=== PATIENT | male | born 1965 | race Hispanic/Latino ===

== ENCOUNTER 2016-09-14 08:48 | Inpatient (IN) | payer OTHER ==
[2016-09-14] MEDS ORDERED: Naloxone 0.4 mg/ml Inj (Adult) IVP STA (08:51)
[2016-09-14 08:52] VITALS: BMI 27.1
[2016-09-14] MEDS ORDERED: Sodium Chloride 0.9% 1,000 ML IV STA (09:00)
[2016-09-14 09:14] LABS: VENOUS BLOOD GAS BASE EXCESS 3.5 mmol/L (0.0-2.0); VENOUS BLOOD GAS PCO2 47 mmHg (40-60); VENOUS BLOOD GAS PO2 47 mm/Hg (30-55)
--- NOTE | 2016-09-14 09:39 | ED PDOC ---
HPI: Psych/Substance Abuse Time Seen by Provider: 09/14/16 08:51 Chief Complaint (Nursing): Substance Abuse Chief Complaint (Provider): "he took some pills" ED Caveat: Altered Mental Status, Intoxicated History Per: EMS, Other (friend) History/Exam Limitations: clinical condition Onset/Duration Of Symptoms: Unknown Suicide/Self Injury Attempted (Context): Ingestion Modifying Factor(s): Other Severity: Severe Associated Symptoms: Depression, Suicidal Thoughts Involuntary Hold By: Emergency Physician Additional History Per: Friend Additional Complaint(s): 49yo male per report from friend having marital difficulties texted a family member in [place] he took a bunch of pills this morning, friend went to apartment and broke door found patient semi-conscious on bed. Arrived ED obtunded with BLS, adequate respiratory effort, some pink ?vomitus on shirt. Police followed with medications collected at scene- offshore medications including migrane medicine, cold medicine and pain medicine per family. Medications are labeled in sami with hebrew translation including: Located at scene: 2 bottles of combination medicine Acetylsalicylic acid 250mg, paracetamol 250mg, caffeine 65mg; Box of blister packs of Dexamol Cold ( paracetamol 325mg, guafenisin 200mg, dextromethophamn 10mg, pseudoephedrine 25mg ; and Optaglin (Dipyrone 500mg). Bottles are empty, scatted blister packs ( dipyrone) empty. Past Medical History Reviewed: Historical Data, Nursing Documentation, Vital Signs Vital Signs: Last Vital Signs Temp Pulse 101 H 09/14/16 09:30 Resp 20 09/14/16 09:30 BP 160/90 H 09/14/16 09:30 Pulse Ox 97 09/14/16 09:30 - Medical History PMH: HTN (per friend; limited history due to clinical condition) - Family History Family History: States: Unknown Family Hx - Living Arrangements Living Arrangements: With Family - Social History Alcohol: Other (per friend not known to abuse alcohol) - Home Medications Home Medications: Ambulatory Orders Medication Instructions Recorded Dexamol 09/14/16 Dipyrone 09/14/16 Pseudoephedrine [Pseudoephedrine 30 mg PO 09/14/16 HCl] - Allergies Allergies/Adverse Reactions: Allergies Allergy/AdvReac Type Severity Reaction Status Date / Time No Known Allergies Allergy Verified 07/08/17 10:37 Review of Systems Review Of Systems: ROS cannot be obtained secondary to pt's inabilty to answer questions. (AMS) Physical Exam - Reviewed Nursing Documentation Reviewed: Yes Vital Signs Reviewed: Yes - Physical Exam Appears: Positive for: Non-toxic, In Acute Distress (initially obtunded then became agitated with poor insight and labile mood) Head Exam: Positive for: ATRAUMATIC, NORMAL INSPECTION, NORMOCEPHALIC Skin: Positive for: Warm (flushed). Negative for: Rash, Cyanosis Eye Exam: Positive for: Normal appearance, EOMI, PERRL, Other (pupils 3mm reactive). Negative for: Periorbital swelling, Periorbital tenderness ENT: Positive for: Normal ENT Inspection Neck: Positive for: Normal, Painless ROM, Trachea Midline Cardiovascular/Chest: Positive for: Regular Rate, Rhythm Respiratory: Positive for: Normal Breath Sounds. Negative for: Decreased Breath Sounds, Stridor, Respiratory Distress Pulses-Radial (L): 2+ Pulses-Radial (R): 2+ Gastrointestinal/Abdominal: Positive for: Bowel Sounds, Soft. Negative for: Tenderness Back: Positive for: Other (3mm fresh-appearing abrasion central thoracic back) Extremity: Positive for: Normal ROM Neurologic/Psych: Positive for: Alert, cancer registrar II-XII, Oriented (confused and agitated), Mood/Affect (labile, poor insight poor judgement), Other (strength 5/ 5 all ext). Negative for: Motor/Sensory Deficits - Laboratory Results Result Diagrams: 09/14/16 09:20 09/14/16 09:20 - ECG O2 Sat by Pulse Oximetry: 97 Pulse Ox Interpretation: Normal - Radiology X-Ray: Interpreted by [facility] X-Ray Interpretation: No Acute Disease - Progress Re-evaluation Time: 10:19 (HR 88, arousable) - Physician Consult Information Outcome Of Conversation: d/w poison control - Critical Care Total Time (In Min): 65 Medical Decision Making Medical Decision Making: Pt given narcan 2mg on arrival without initial response. Approx 10min later, arrived and patient became agitated and combative, security called to bedside, requiring restraints for staff and patient safety, and ativan 2mg for relief of agitation. EKG/ CXR/ overdose bloodwork ordered. Poison control contacted 925am, d/w Sheree, recommends repeat EKG in 1-2 hours, levels ASA/APAP and supportive care for now. Dipyrone is strong NSAID not available for market in [place], risk of acute tubular necrosis. EKG sinus at 94bpm with QTc86, QRS 86 initial labs reviewed ASA/ tylenol neg ETOH neg LFTS normal CXR no acute infiltrate on my initial review Repeat tylenol and ASA levels ordered for 12p. Repeat EKG upcoming. Admit Dr Crawford hospitalist 1018am. Care transferred. Friends at bedside, updated on progress and plan of care. 1:1 obs remains repeat EKG 1046am Sinus 79bpm QRS 90 QTc 417 Disposition - Clinical Impression Clinical Impression: Overdose - Patient ED Disposition Is Patient to be Admitted: Yes Counseled Patient/Family Regarding: Studies Performed, Diagnosis - Disposition Disposition Time: 10:05 Condition: GUARDED - Pt Status Changed To: Hospital Disposition Of: Inpatient - Admit Certification Admit to Inpatient:: After my assessment, the patient will require hospitalization for at least two midnights. This is because of the severity of symptoms shown, intensity of services needed, and/or the medical risk in this patient being treated as an outpatient. - POA Present On Arrival: None
[2016-09-14 09:44] LABS: BASO % 0.3 % (0.0-2.0); EOS # 0.1 K/uL (0.0-0.7); EOS % 1.3 % (0.0-4.0); HEMOGLOBIN 17.1 g/dL (12.0-18.0); LYMPH # 3.9 K/uL (1.0-4.3); LYMPH % 34.2 % (20.0-40.0); MEAN CELL VOLUME 85.3 fl (80.0-94.0); MEAN CORPUSCULAR HEMOGLOBIN 28.6 pg (27.0-31.0); MEAN CORPUSCULAR HGB CONC 33.5 g/dL (33.0-37.0); MONO # 0.8 K/uL (0.0-0.8); MONO % 6.6 % (0.0-10.0); NEUT # 6.7 K/uL (1.8-7.0); NEUT % 57.6 % (50.0-75.0); NRBC % 0.1 % (0.0-0.0); RBC 5.98 Mil/uL (4.40-5.90); RED CELL DISTRIBUTION WIDTH 13.4 % (11.5-14.5); WHITE BLOOD COUNT 11.5 K/uL (4.8-10.8)
[2016-09-14 09:53] LABS: ALB/GLOB RATIO 1.4 (1.0-2.1); ALT/SGPT 51 U/L (21-72); AST/SGOT 33 U/L (17-59); BLOOD UREA NITROGEN 15 mg/dl (9-20); GFR AFRICAN-AMERICAN > 60; GFR NON-AFRICAN AMERICAN > 60
[2016-09-14 09:54] LABS: SALICYLATE < 1.0 mg/dl
[2016-09-14 09:56] LABS: ACETAMINOPHEN < 10.0 ug/ml (10.0-30.0)
[2016-09-14 10:48] LABS: URINE BACTERIA RARE (<OCC); URINE BILIRUBIN NEGATIVE (NEGATIVE); URINE BLOOD NEGATIVE (NEGATIVE); URINE CLARITY CLEAR (Clear); URINE COLOR YELLOW (YELLOW); URINE GLUCOSE (UA) NEG (Normal); URINE LEUKOCYTE ESTERASE NEG Leu/uL (Negative); URINE NITRATE NEGATIVE (NEGATIVE); URINE PROTEIN 100 mg/dL (NEGATIVE); URINE UROBILINOGEN 0.2-1.0 mg/dL (0.2-1.0)
[2016-09-14 10:53] LABS: BARBITURATES, UR NEGATIVE (NEGATIVE); BENZODIAZEPINES, UR NEGATIVE (NEGATIVE); OPIATES, UR NEGATIVE (NEGATIVE); PHENCYCLIDINE, UR NEGATIVE (NEGATIVE)
[2016-09-14 12:50] LABS: SALICYLATE < 1.0 mg/dl
[2016-09-14 12:56] LABS: ACETAMINOPHEN < 10.0 ug/ml (10.0-30.0)
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
[2016-09-14 13:20] VITALS: RESP 18
--- NOTE | 2016-09-14 13:31 | RAD ---
PROCEDURE: CHEST RADIOGRAPH, 1 VIEW HISTORY: OD COMPARISON: None available. FINDINGS: LUNGS: Poor inspiration with low lung volumes, mild crowded bronchovascular markings and mild bibasilar atelectasis. The central pulmonary vasculature is also slightly increased though this is likely due to supine patient positioning and low lung volumes as well. PLEURA: No pneumothorax or pleural fluid seen. CARDIOVASCULAR: Heart size is difficult to assess due to poor inspiration and low lung volumes. OSSEOUS STRUCTURES: No significant abnormalities. VISUALIZED UPPER ABDOMEN: Normal. OTHER FINDINGS: None. IMPRESSION: Poor inspiration with low lung volumes, mild crowded bronchovascular markings and mild bibasilar atelectasis. The central pulmonary vasculature is also slightly increased though this is likely due to supine patient positioning and low lung volumes as well.
[2016-09-14] MEDS: Sodium Chloride 0.9% 1,000 ML IV SCH ×2 (14:05→23:50)
[2016-09-14 15:15] LABS: HEMOGLOBIN 15.4 g/dL (12.0-18.0); MEAN CELL VOLUME 85.3 fl (80.0-94.0); MEAN CORPUSCULAR HEMOGLOBIN 28.7 pg (27.0-31.0); MEAN CORPUSCULAR HGB CONC 33.7 g/dL (33.0-37.0); RBC 5.38 Mil/uL (4.40-5.90); RED CELL DISTRIBUTION WIDTH 13.3 % (11.5-14.5); WHITE BLOOD COUNT 12.1 K/uL (4.8-10.8)
[2016-09-15] MEDS: Sodium Chloride 0.9% 1,000 ML IV SCH ×2 (05:01→13:15)
[2016-09-15 07:47] LABS: ALB/GLOB RATIO 1.4 (1.0-2.1); ALBUMIN 4.2 g/dL (3.5-5.0); ALT/SGPT 38 U/L (21-72); AST/SGOT 28 U/L (17-59); BLOOD UREA NITROGEN 15 mg/dl (9-20); CALCIUM 9.2 mg/dL (8.4-10.2); GFR AFRICAN-AMERICAN > 60; GFR NON-AFRICAN AMERICAN > 60
[2016-09-15] MEDS ORDERED: Enoxaparin 40 mg Syringe SC SCH (09:00)
[2016-09-15 10:16] LABS: BASO # 0.1 K/uL (0.0-0.2); BASO % 0.5 % (0.0-2.0); EOS # 0.2 K/uL (0.0-0.7); EOS % 2.3 % (0.0-4.0); HEMOGLOBIN 15.7 g/dL (12.0-18.0); LYMPH % 40.9 % (20.0-40.0); MEAN CELL VOLUME 86.5 fl (80.0-94.0); MEAN CORPUSCULAR HEMOGLOBIN 28.8 pg (27.0-31.0); MEAN CORPUSCULAR HGB CONC 33.3 g/dL (33.0-37.0); MEAN PLATELET VOLUME 9.3 fl (7.2-11.7); MONO # 0.7 K/uL (0.0-0.8); MONO % 7.5 % (0.0-10.0); NEUT # 4.7 K/uL (1.8-7.0); NEUT % 48.8 % (50.0-75.0); NRBC % 0.1 % (0.0-0.0); RBC 5.46 Mil/uL (4.40-5.90); RED CELL DISTRIBUTION WIDTH 13.4 % (11.5-14.5); WHITE BLOOD COUNT 9.7 K/uL (4.8-10.8)
--- NOTE | 2016-09-15 10:46 | CARD ---
APPROVED REPORT EKG Measurement Heart [id number] <Conclusion> Normal sinus rhythm Possible Left atrial enlargement Borderline ECG
--- NOTE | 2016-09-15 10:47 | CARD ---
APPROVED REPORT EKG Measurement Heart [id number] <Conclusion> Normal sinus rhythm Possible Left atrial enlargement Left ventricular hypertrophy Abnormal ECG
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
--- NOTE | 2016-09-15 11:11 | CP.PCM.DIS ---
Provider - Provider Date of Admission: 09/14/16 10:15 Attending physician: Aleyda Crawford DO Primary care physician: None Consults: psych consult Time Spent in preparation of Discharge (in minutes): 20 Hospital Course - Lab Results Lab Results: Most Recent Lab Values WBC 9.7 K/uL (4.8-10.8) 09/15/16 10:00 RBC 5.46 Mil/uL (4.40-5.90) 09/15/16 10:00 Hgb 15.7 g/dL (12.0-18.0) 09/15/16 10:00 Hct 47.2 % (35.0-51.0) 09/15/16 10:00 MCV 86.5 fl (80.0-94.0) 09/15/16 10:00 MCH 28.8 pg (27.0-31.0) 09/15/16 10:00 MCHC 33.3 g/dL (33.0-37.0) 09/15/16 10:00 RDW 13.4 % (11.5-14.5) 09/15/16 10:00 Plt Count 201 K/uL (130-400) 09/15/16 10:00 MPV 9.3 fl (7.2-11.7) 09/15/16 10:00 Neut % (Auto) 48.8 % (50.0-75.0) L 09/15/16 10:00 Lymph % (Auto) 40.9 % (20.0-40.0) H 09/15/16 10:00 [place] % (Auto) 7.5 % (0.0-10.0) 09/15/16 10:00 Eos % (Auto) 2.3 % (0.0-4.0) 09/15/16 10:00 Baso % (Auto) 0.5 % (0.0-2.0) 09/15/16 10:00 Neut # 4.7 K/uL (1.8-7.0) 09/15/16 10:00 Lymph # 4.0 K/uL (1.0-4.3) 09/15/16 10:00 [place] # 0.7 K/uL (0.0-0.8) 09/15/16 10:00 Eos # 0.2 K/uL (0.0-0.7) 09/15/16 10:00 Baso # 0.1 K/uL (0.0-0.2) 09/15/16 10:00 pO2 47 mm/Hg (30-55) 09/14/16 09:05 VBG pH 7.40 (7.32-7.43) 09/14/16 09:05 VBG pCO2 47 mmHg (40-60) 09/14/16 09:05 VBG HCO3 27.3 mmol/L 09/14/16 09:05 VBG Total CO2 30.5 mmol/L (22-28) H 09/14/16 09:05 VBG O2 Sat (Calc) 84.4 % (40-65) H 09/14/16 09:05 VBG Base Excess 3.5 mmol/L (0.0-2.0) H 09/14/16 09:05 VBG Potassium 4.2 mmol/L (3.6-5.2) 09/14/16 09:05 Sodium 139.0 mmol/L (132-148) 09/14/16 09:05 Chloride 104.0 mmol/L (98-107) 09/14/16 09:05 Glucose 115 mg/dL (75-110) H 09/14/16 09:05 Lactate 2.0 mmol/L (0.7-2.1) 09/14/16 09:05 FiO2 21.0 % 09/14/16 09:05 Sodium 143 mmol/l (132-148) 09/15/16 06:30 Potassium 4.7 MMOL/L (3.6-5.0) 09/15/16 06:30 Chloride 106 mmol/L (98-107) 09/15/16 06:30 Carbon Dioxide 28 mmol/L (22-30) 09/15/16 06:30 Anion Gap 14 (10-20) 09/15/16 06:30 BUN 15 mg/dl (9-20) 09/15/16 06:30 Creatinine 1.0 mg/dL (0.8-1.5) 09/15/16 06:30 Est GFR ( Amer) > 60 09/15/16 06:30 Est GFR (Non-Af Amer) > 60 09/15/16 06:30 Random Glucose 94 mg/dL (75-110) 09/15/16 06:30 Calcium 9.2 mg/dL (8.4-10.2) 09/15/16 06:30 Total Bilirubin 0.7 mg/dl (0.2-1.3) 09/15/16 06:30 AST 28 U/L (17-59) 09/15/16 06:30 ALT 38 U/L (21-72) 09/15/16 06:30 Alkaline Phosphatase 47 U/L (38-126) 09/15/16 06:30 Total Protein 7.2 G/DL (6.3-8.2) 09/15/16 06:30 Albumin 4.2 g/dL (3.5-5.0) 09/15/16 06:30 Globulin 3.0 gm/dL (2.2-3.9) 09/15/16 06:30 Albumin/Globulin Ratio 1.4 (1.0-2.1) 09/15/16 06:30 Venous Blood Potassium 4.2 mmol/L (3.6-5.2) 09/14/16 09:05 Urine Color Yellow (YELLOW) 09/14/16 10:30 Urine Clarity Clear (Clear) 09/14/16 10:30 Urine pH 6.0 (5.0-8.0) 09/14/16 10:30 Ur Specific [place] 1.019 (1.003-1.030) 09/14/16 10:30 Urine Protein 100 mg/dL (NEGATIVE) 09/14/16 10:30 Urine Glucose (UA) Neg mg/dL (Normal) 09/14/16 10:30 Urine Ketones Negative mg/dL (NEGATIVE) 09/14/16 10:30 Urine Blood Negative (NEGATIVE) 09/14/16 10:30 Urine Nitrate Negative (NEGATIVE) 09/14/16 10:30 Urine Bilirubin Negative (NEGATIVE) 09/14/16 10:30 Urine Urobilinogen 0.2-1.0 mg/dL (0.2-1.0) 09/14/16 10:30 Ur Leukocyte Esterase Neg [place]/uL (Negative) 09/14/16 10:30 Urine RBC (Auto) 9 /hpf (0-3) H 09/14/16 10:30 Urine Microscopic WBC 2 /hpf (0-5) 09/14/16 10:30 Urine Bacteria Rare (<OCC) 09/14/16 10:30 Salicylates < 1.0 mg/dl 09/14/16 12:12 Urine Opiates Screen Negative (NEGATIVE) 09/14/16 10:30 Urine Methadone Screen Negative (NEGATIVE) 09/14/16 10:30 Acetaminophen < 10.0 ug/ml (10.0-30.0) L 09/14/16 12:12 Ur Barbiturates Screen Negative (NEGATIVE) 09/14/16 10:30 Ur Phencyclidine Scrn Negative (NEGATIVE) 09/14/16 10:30 Ur Amphetamines Screen Negative (NEGATIVE) 09/14/16 10:30 U Benzodiazepines Scrn Negative (NEGATIVE) 09/14/16 10:30 U Oth Cocaine Metabols Negative (NEGATIVE) 09/14/16 10:30 U Cannabinoids Screen Negative (NEGATIVE) 09/14/16 10:30 Alcohol, Quantitative < 10 mg/dl (0-10) 09/14/16 09:20 - Hospital Course Hospital Course: 50 year old male with PMH HTN, "enlarged heart" and "fast heart rate", presented after intentional overdose with unknown medications.He took a couple of handfuls of medications he had at home from [facility]. He states he has been having marital and financial problems recently.. He admits he was trying to hurt himself, and had one other attempt in 1999 when his mother . Poison control was contacted in ER, and advised to monitor Salicylate and Acetaminophen levels given meds taken, both were trended x2 and were negative. Patient observed in telemetry and psych consulted .Patient remained hemodynamically stable . He is medically stable. Psychiatry eval appreciated and patient agrees to get psychiatric help in psych unit. Will d/c patient to [employer] 1.Major Depression with Suicide Attempt poison control was consulted given IVf, monitored in telemetry and electrolyes were monitored Patient is medically cleared for discharge to psych psychiatry consult appreciated . will /c to psych unit 2.Hypertension Cardiomegaly? Tachycardia/Hx of Afib? Uncertain, pt in sinus rhythm Will start coreg and ASA 3.VTE ppx lovenox Discharge Exam - Head Exam Head Exam: ATRAUMATIC, NORMAL INSPECTION, NORMOCEPHALIC - Eye Exam Eye Exam: EOMI, Normal appearance, PERRL Pupil Exam: NORMAL ACCOMODATION - ENT Exam ENT Exam: Mucous Membranes Moist, Normal Exam - Neck Exam Neck exam: Full Rom, Normal Inspection - Respiratory Exam Respiratory Exam: Clear to PA & Lateral, NORMAL BREATHING PATTERN. absent: Rales, Rhonchi, Wheezes - Cardiovascular Exam Cardiovascular Exam: REGULAR RHYTHM, RRR, +S1, +S2. absent: JVD - GI/Abdominal Exam GI & Abdominal Exam: Normal Bowel Sounds, Soft. absent: Distended, Guarding, Rebound, Tenderness - Rectal Exam Rectal Exam: Deferred - Extremities Exam Extremities exam: normal capillary refill, normal inspection, pedal pulses present - Back Exam Back exam: NORMAL INSPECTION - Neurological Exam Neurological exam: Alert, CN II-XII Intact, Oriented x3, Reflexes Normal - Psychiatric Exam Psychiatric exam: Normal Affect, Normal Mood - Skin Skin Exam: Dry, Intact, Normal Color, Warm Discharge Plan - Follow Up Plan Condition: STABLE Disposition: HOME/ ROUTINE Patient education suggested?: Yes Instructions: Depression (DC)
[2016-09-15 14:02] VITALS: BP 166/93; PULSE 71; TEMP 99; O2SAT 96
== END 2016-09-15 16:13 | disposition home or self-care (01) | DRG 450 ==
LOC: EDBD → H.ER 08:48 → H.ERHOLD 10:15 → H.TEL 12:04
PROVIDERS: ADMIT Student in an Organized Health Care Education/Training Program; ATTEND Student in an Organized Health Care Education/Training Program
DX: T50.902A Poisoning by unspecified drugs, medicaments and biological substances, intentional self-harm, initial encounter (principal); F32.1 Major depressive disorder, single episode, moderate; I11.9 Hypertensive heart disease without heart failure; Y92.9 Unspecified place or not applicable; R00.0 Tachycardia, unspecified; Z87.891 Personal history of nicotine dependence; Z90.49 Acquired absence of other specified parts of digestive tract; Z78.1 Physical restraint status

== ENCOUNTER 2016-09-15 14:59 | Inpatient (IN) | payer MEDICAID, OTHER ==
[2016-09-15 16:27] VITALS: BMI 32.2
[2016-09-15] MEDS ORDERED: Magnesium Hydroxide Susp 30 ml UD PO PRN (18:01)
[2016-09-15] MEDS ORDERED: DiphenhydrAMINE 50 mg/ml Inj IM PRN (18:01)
[2016-09-15] MEDS ORDERED: Alum-Mag Hydrox-Simethicone Susp (30 mL) PO PRN (18:01)
--- NOTE | 2016-09-16 12:53 | PCM.PSYCH ---
Initial Psychiatric Evaluation - Initial Psychiatric Evaluation Type of Admission: Voluntary Legal Status: Capacity Chief Complaint (in patient's own words): i do not belong here Patient's Reaction to Hospitalization: angry, signed 48 hour notice History of Present Illness and Precipitating Events: 50 yo male, transferred from telemetry after an overdose with intent to . he texted his sister in law who notified authorities and pt was brought to hospital. he denies previous suicide attempts, or treatment with psychiatric medication. he does reprort a brief therapy course 18 years ago after of mother. he has become progressively more depressed since leaving [place] to move to [place] and wait for his green card. during this period he took a leave from his work at [employer] in [place] and has been spending his savings. his financial stress and frustrations have grown and he states he and his /daughter have been fighting. and daughter left the home a week before his attempt. the patient stated yesterday when i saw him on the medical floor that he had intended to and he endorsed feeling depressed and he was dysphoric and tearful and asking to be admitted to the unit. today pt came to treatment team and was irritable, angry and demanding to leave. he was stating "i don't belong here" he mentioned "i mean i don't belong here and i belong in [place]" he has been refusing to take his bp meds despite elevated bp here. he states "i will only take dominican medications" he states he went to the doctor there and "they studied my shape and i will only take the medications from them" we tried to explain that the same meds are available at this hospital, but he continues to refuse to take the medications. he is pacing the halls here and appears very angry and irritable. pt signs a 48 hour notice. the team explained the process to the patient who continues to express frustration. he was made aware that based on his refusal to take meds and his recent suicide attempt, the team would have him screened for [facility]. after this he stated he would take congolese psychiatric meds since he is being assessed here and was agreeable to take zoloft. Current Medications: Active Medications Generic Name Dose Route Start Last Admin Trade Name Freq PRN Reason Stop Dose Admin Acetaminophen 650 mg 09/15/16 18:01 Tylenol 325mg Tab PO Q4 PRN Pain, moderate (4-7) Al Hydrox/Mg Hydrox/Simethicone 30 ml 09/15/16 18:01 Maalox Plus 30 Ml PO Q4 PRN Dyspepsia Aspirin 81 mg 09/16/16 11:30 Aspirin Chewable PO DAILY VIDAL Carvedilol 6.25 mg 09/16/16 17:00 Coreg PO BID VIDAL Diphenhydramine HCl 50 mg 09/15/16 18:01 Benadryl IM Q6 PRN Extrapyramidal S/S Unable PO Diphenhydramine HCl 50 mg 09/15/16 18:11 Benadryl PO Q6 PRN Restlessness Haloperidol 5 mg 09/15/16 18:01 Haldol PO Q4 PRN Agitation Haloperidol Lactate 5 mg 09/15/16 18:01 Haldol IM Q4 PRN Agitation, Unable to Take PO Lorazepam 2 mg 09/15/16 18:01 Ativan IM Q4 PRN Anxiety/Agitation,Unable PO Lorazepam 2 mg 09/15/16 18:09 Ativan PO Q4 PRN Anxiety Magnesium Hydroxide 30 ml 09/15/16 18:01 Milk Of Magnesia PO HS PRN Constipation Sertraline HCl 25 mg 09/16/16 11:30 Zoloft PO DAILY [facility] Past Psychiatric History - Past Psychiatric History Previous Treatment History: None Prior Professional Help: therapy for 4 months in [facility] 18 years ago History of Abuse: denies History of ETOH/Drug Use: denies use of alcohol and illicit substances. stopped smoking 10 years ago. History of Family Illness: denies Pertinent Medical Hx (Current Medical&Sleep Prob, Allergies): Allergies Allergy/AdvReac Type Severity Reaction Status Date / Time No Known Allergies Allergy Verified 09/14/16 10:37 Aspirin 81 mg PO DAILY #30 tab.chew 09/15/16 Carvedilol [Coreg] 6.25 mg PO BID #60 tab 09/15/16 pt has htn. Review of Systems - Psychiatric Psychiatric: As Per HPI, Anhedonia, Depression, Irritability, Suicidal Ideation Mental Status Examination - Personal Presentation Personal Presentation: Looks stated age - Affect Affect: Other (constricted/irritable) - Motor Activity Motor Activity: Calm - Reliability in Providing Information Reliability in Providing Information: Poor, due to alteration in thoughts (angry /guarded/perseverates) - Speech Speech: Organized - Mood Mood: Depressed, Other (irritable) - Formal Thought Process Formal Thought Process: Paranoia (? refusing medical meds from hospital? ) - Obsessions/Compulsions Obsessions: No Compulsions: No - Cognitive Functions Orientation: Person, Place, Situation, Time Sensorium: Alert Attention/Concentration: Attentive Abstract Thinking: [place] Estimate of Intelligence: Average Judgement: Intact, as evidence by: Insight regarding need for hospitalization Memory: Recent intact, as evidence by: Ability to recall events of the day, Remote intact, as evidenced by: Abilit to recall sig. life events - Risk Risk: Suicidal (recent attempt. pt expressing regret yesterday for the attempt. ), Diminished functioning, Other (pt not taking medical meds) - Strength & Assets Inventory Strength & Assets Inventory: Employment history, Other (has supportive friends) - Limitations Limitations: Other (economic stress, relationship stress) DSM 5 DX - DSM 5 DSM 5 Diagnosis: major depression single episode, moderate r/o severe with psychotic features - Recommended/Plan of Treatment Treatment Recommendations and Plan of Treatment: admit to [facility] for safety and observation gather collateral information provide supportive therapy adjust medications- start zoloft- attempted to discuss r/b/se with pt. pt agrees. will provide written information encourage participation in groups disposition planning- screen for involuntary hospitalization as pt is s/p a suicide attempt with lethal intent and is now demanding to leave and refusing bp meds even when confronted with high bp numbers. his reasoning for refusing medications is not logical and may be a marker for either a psychotic manifestation of his depression or a passive suicidal expression. it could also be culturally influenced, but still at this point represents a risk to pt as does his demands to leave the hospital. will order zoloft to target his depression and try to refer to outpt treatment and contact pt's supports. Projected ELOS: 3-5 days Prognosis: guarded
[2016-09-17 09:20] VITALS: BP 148/94; PULSE 64; RESP 18; TEMP 97.7
--- NOTE | 2016-09-17 11:16 | PCM.PYCHDC ---
Mental Status Examination - Mental Status Examination Orientation: Person, Place, Situation, Time Memory: Intact Mood: Depressed Affect: Broad Speech: Appropriate Attention: WNL Concentration: WNL Association: WNL Fund of Knowledge: WNL Formal Thought Process: No Impairment Description of patient's judgement and insight: fair Psychotic Thoughts and Behaviors: denies a/v hallucinations Suicidal Ideation: No Current Homicidal Ideation?: No Plan: pt denies any suicidal or homicidal thoughts. states he regrets his suicide attempt. pt is future oriented and hoping to move back to [facility]. Discharge Summary - Discharge Note Reason for Hospitalization: transfered from medical after an overdose Psychiatric History (includes Medical, Family, Personal Hx): history of brief therapy 18 years ago Consultations:: List each consultation separately and include: 1. Reason for request. 2. Findings. 3. Follow-up Consultations: seen by the hospitalist Summary of Hospital Course include:: 1. Description of specific treatment plan utilized for patients during their course of treatmen. 2. Summarize the time- course for resolution of acute symptoms and/or regressed behaviors. 3. Describe issues identified and worked on during hospitalization. 4. Describe medication utilized. 5. Describe medical problems identified and treated. 6. Reassessment of suicide risk Summary of Hospital Course: 50 yo male, transferred from telemetry after an overdose with intent to . he texted his sister in law who notified authorities and pt was brought to hospital. he denies previous suicide attempts, or treatment with psychiatric medication. he does reprort a brief therapy course 18 years ago after of mother. he has become progressively more depressed since leaving [place] to move to [place] and wait for his green card. during this period he took a leave from his work at [employer] in [facility] and has been spending his savings. his financial stress and frustrations have grown and he states he and his /daughter have been fighting. and daughter left the home a week before his attempt. the patient stated yesterday when i saw him on the medical floor that he had intended to and he endorsed feeling depressed and he was dysphoric and tearful and asking to be admitted to the unit. today pt came to treatment team and was irritable, angry and demanding to leave. he was stating "i don't belong here" he mentioned "i mean i don't belong here and i belong in [place]" he has been refusing to take his bp meds despite elevated bp here. he states "i will only take slovenian medications" he states he went to the doctor there and "they studied my shape and i will only take the medications from them" we tried to explain that the same meds are available at this hospital, but he continues to refuse to take the medications. he is pacing the halls here and appears very angry and irritable. pt signs a 48 hour notice. the team explained the process to the patient who continues to express frustration. he was made aware that based on his refusal to take meds and his recent suicide attempt, the team would have [place] [facility] [place] after this he stated he would take greek psychiatric meds since he is being assessed here and was agreeable to take zoloft. hospital course: pt was admitted to [facility] and oriented to the unit. seen by the treatment team as above. he was agreeable to take zoloft and eventually took his bp meds. he was [place] [facility] [place] not found to meet the criteria for involuntary hospitalization. the patient was agreeable to f/u with aftercare and take his zoloft as prescribed. he stated he was planning to move back to [place]. his mood became significantly less irritable and he demonstrated rational thought and appropriate social behaviors and was not exhibiting any evidence of psychosis. at the time of discharge the pt was future oriented and goal directed. - Final Diagnosis (DSM 5) Condition upon Discharge: GOOD DSM 5: major depression single episode moderate Disposition: HOME/ ROUTINE Follow-up Treatment Plan: follow up with aftercare as directed take medications as prescribed do not use alcohol, tobacco or other illicit substances call 911 if any suicidal or homicidal thoughts follow up with your primary care doctor Prescriptions/Medication Reconciliation: Sertraline [Zoloft] 25 mg PO DAILY #30 tab - Smoking Cessation Smoking Cessation Medication prescribed: No - Antipsychotic Medications Pt discharged on 2 or more routine antipsychotic medications: No
== END 2016-09-17 15:00 | disposition home or self-care (01) | DRG 430 ==
LOC: EDBD → H.PSYCH 16:51
PROVIDERS: ADMIT Psychiatry & Neurology Psychiatry; ATTEND Psychiatry & Neurology Psychiatry
DX: F32.1 Major depressive disorder, single episode, moderate (principal)